=== PATIENT | female | born 1990 | race Native Hawaiian/Other Pacific Islander ===

== ENCOUNTER 2018-01-01 14:37 | Inpatient (IN) | payer OTHER ==
[2018-01-01 14:37] VITALS: BMI 32.5
[2018-01-01] MEDS ORDERED: Lidocaine 2% w Epi 1:100,000 Inj IJ ONE (15:34)
[2018-01-01] MEDS ORDERED: cefTRIAXone 2 GM in Sodium Chloride 0.9% 100 ML IVPB STA (15:39)
[2018-01-01] MEDS ORDERED: Dexamethasone 10 MG in Sodium Chloride 0.9% 50 ML IVPB STA (15:39)
[2018-01-01] MEDS ORDERED: Sodium Chloride 0.9% 1,000 ML IV STA (15:43)
--- NOTE | 2018-01-01 15:45 | ED PDOC ---
HPI: Fever Time Seen by Provider: 01/01/18 15:13 Fever Onset Was: 12/28/17 Recent Sick Contacts: No Have you had recent travel within the past 21 days to any of the following countries: [place], [place], [place] or [place]?: No Additional Comments: 27 y/o female with a PMHx of asthma presents to the ED for evaluation of a fever. Patient reports symptoms began with a stiff neck on and later that evening she developed a fever with a Tmax of 102. Patient states fever is associated with headaches, photophobia and nausea. Patient additionally reports of developing a rash on Monday starting on the legs and is now on the arm. Patient reports of taking Motrin for fever one hour prior to arrival. Patient states she went to an Urgent Care yesterday and was prescribed Cefdinir to treat the fever. Patient denies diarrhea, URI symptoms, urinary symptoms, sick contacts or recent travel. Past Medical History Reviewed: Historical Data, Nursing Documentation, Vital Signs Vital Signs: Last Vital Signs Temp 99.2 F 01/01/18 15:22 Pulse 104 H 01/01/18 15:22 Resp 19 01/01/18 15:22 BP 126/72 01/01/18 15:22 Pulse Ox 98 01/01/18 15:22 - Medical History PMH: Asthma - Surgical History Surgical History: No Surg Hx - Family History Family History: States: Diabetes - Social History Current smoker - smoking cessation education provided: No - Home Medications Home Medications: Ambulatory Orders Medication Instructions Recorded Albuterol Sulfate [Proair Hfa] 2 puff IH Q6 PRN 01/01/18 - Allergies Allergies/Adverse Reactions: Allergies Allergy/AdvReac Type Severity Reaction Status Date / Time shellfish derived Allergy RASH Verified 01/01/18 15:38 Review of Systems ROS Statement: Except As Marked, All Systems Reviewed And Found Negative (as per HPI) Constitutional: Positive for: Fever Cardiovascular: Negative for: Chest Pain Respiratory: Negative for: Cough, Hemoptysis Gastrointestinal: Positive for: Nausea. Negative for: Vomiting, Diarrhea Musculoskeletal: Positive for: Neck Pain Neurological: Positive for: Headache, Other (photophobia) Physical Exam - Reviewed Nursing Documentation Reviewed: Yes Vital Signs Reviewed: Yes - Physical Exam Appears: Positive for: Non-toxic, In Acute Distress Head Exam: Positive for: ATRAUMATIC, NORMOCEPHALIC Skin: Positive for: Warm, Dry, Rash Eye Exam: Positive for: EOMI, PERRL ENT: Negative for: Pharyngeal Erythema, Tonsillar Exudate Neck: Positive for: Supple, Pain On Movement Of Neck (pain with flexion, neg brudsinki/kernig) Cardiovascular/Chest: Positive for: Regular Rate, Rhythm, Chest Non Tender. Negative for: Murmur Respiratory: Positive for: Normal Breath Sounds. Negative for: Rales, Rhonchi, Respiratory Distress Gastrointestinal/Abdominal: Positive for: Soft. Negative for: Tenderness, Mass, Guarding Back: Positive for: Normal Inspection. Negative for: L CVA Tenderness, R CVA Tenderness Extremity: Positive for: Normal ROM. Negative for: Deformity Lymphatic: Negative for: Adenopathy Neurologic/Psych: Positive for: Alert. Negative for: Motor/Sensory Deficits - Laboratory Results Result Diagrams: 01/02/18 05:35 01/02/18 05:35 - ECG ECG: Positive for: Interpreted By [facility] ECG Rhythm: Positive for: Normal QRS, Normal ST Segment, Sinus Rhythm O2 Sat by Pulse Oximetry: 98 (RA) Pulse Ox Interpretation: Normal - Radiology X-Ray: Interpreted by [facility] X-Ray Interpretation: No Acute Disease Medical Decision Making Medical Decision Making: Time: 1543 Impression: Fever and Neck Pain Differentials include but not limited to viral syndrome, meningitis, coxsackie, flu and strep throat. Plan: -- VBG -- EKG -- CMP -- Glucose, CSF -- Magnesium -- Phosphorus -- Total Protein, CSF -- CBC with differentials -- PTT -- Prothrombin Time -- CXR Portable XR -- Herpes Simplex 1/2, PCR -- Dexamethasone 10 mg sodium chloride 50 ml IVPB -- Sodium Chloride IV 1000 mls/hr -- Rocephin 2 gm Sodium Chloride 100 ml IVPB -- Blood Culture -- CSF Culture -- Urine Culture -- IV Insertion -- Bacterial Antigen CSF -- Infectious Mononucleolis -- Influenza A B -- Rapid Strep Group A Antigen Time: 173 CXR RESULTS FINDINGS: LUNGS: Right lower lobe infiltrate suspicious for pneumonia. PLEURA: No significant pleural effusion identified, no pneumothorax apparent. CARDIOVASCULAR: Normal. OSSEOUS STRUCTURES: No significant abnormalities. VISUALIZED UPPER ABDOMEN: Normal. OTHER FINDINGS: None. IMPRESSION: Suspicious findings right lower lobe. Pneumonia to be considered. This is a portable slightly rotated study. If these findings are discordant with clinical findings/presentation repeat two-view chest/CT scan advised. Repeat CXR negative for RLL. Bloodwork unremarkable. STACI Pratt PMD for hospitalization for meningitis. Requests Dr Camila GRAMAJO who recommends rickettsial serology and measle, mumps, rubella bloodwork. CSF results c/w viral meningitis. Acyclovir ordered. DW pt and family findings and plan of care. On reeval pt continues to be comfortable. Neurologically intact. Scribe Attestation: Documented by Rosie Montes De Oca acting as a scribe for Maria Fernanda Alvarado MD. Provider Scribe Attestation: All medical record entries made by the Scribe were at my direction and personally dictated by me. I have reviewed the chart and agree that the record accurately reflects my personal performance of the history, physical exam, medical decision making, and the department course for this patient. I have also personally directed, reviewed, and agree with the discharge instructions and disposition. Disposition - Clinical Impression Clinical Impression: Meningitis Counseled Patient/Family Regarding: Studies Performed, Diagnosis - Disposition Disposition Time: 17:45 Condition: SERIOUS - Pt Status Changed To: Hospital Disposition Of: Observation - POA Present On Arrival: None Lumbar Puncture - Time Out Time Out: Side verified, Site verified, Patient ID confirmed, Sterile procedures obs. - Consent obtained Consent obtained: Written - Performed by Performed by: Attending Physician - Indications Indication(s): Suspected menigitis - Contraindications Contraindications: None - Patient Position Patient position: Left lateral decubitus - Local Anesthetic Location: L4/L5 - Fluid Appearance Fluid Appearance: Clear - Post-procedure Post-procedure: No leak/bld from LP site, Dressing applied, Patient laid flat, Neurovascular status nml
[2018-01-01 16:16] LABS: VENOUS BLOOD GAS BASE EXCESS 2.2 mmol/L (0.0-2.0); VENOUS BLOOD GAS PCO2 46 mmHg (40-60); VENOUS BLOOD GAS PO2 22 mm/Hg (30-55); VENOUS BLOOD PH 7.39 (7.32-7.43)
[2018-01-01 16:19] LABS: BASO % 0.4 % (0.0-2.0); EOS # 0.3 K/uL (0.0-0.7); EOS % 4.3 % (0.0-4.0); HEMOGLOBIN 12.1 g/dL (12.0-16.0); LYMPH # 1.3 K/uL (1.0-4.3); LYMPH % 19.4 % (20.0-40.0); MEAN CELL VOLUME 91.1 fl (81.0-99.0); MEAN CORPUSCULAR HEMOGLOBIN 31.1 pg (27.0-31.0); MEAN CORPUSCULAR HGB CONC 34.1 g/dL (33.0-37.0); MEAN PLATELET VOLUME 6.9 fl (7.2-11.7); MONO # 0.4 K/uL (0.0-0.8); MONO % 6.1 % (0.0-10.0); NEUT # 4.5 K/uL (1.8-7.0); NEUT % 69.8 % (50.0-75.0); NRBC % 0.1 % (0.0-0.0); RBC 3.88 Mil/uL (3.80-5.20); RED CELL DISTRIBUTION WIDTH 11.6 % (11.5-14.5); WHITE BLOOD COUNT 6.5 K/uL (4.8-10.8)
[2018-01-01 16:22] LABS: SQUAMOUS EPITHIAL < 1 /hpf (0-5); URINE BACTERIA RARE (<OCC); URINE BILIRUBIN NEGATIVE (NEGATIVE); URINE BLOOD MODERATE (NEGATIVE); URINE CLARITY CLEAR (Clear); URINE COLOR YELLOW (YELLOW); URINE GLUCOSE (UA) NEG (Normal); URINE LEUKOCYTE ESTERASE NEG Leu/uL (Negative); URINE PROTEIN NEGATIVE (NEGATIVE); URINE UROBILINOGEN 0.2-1.0 mg/dL (0.2-1.0)
[2018-01-01 16:24] LABS: PROTHROMBIN TIME 11.1 Seconds (9.8-13.1)
[2018-01-01 16:27] LABS: PARTIAL THROMBOPLASTIN TIME 30.2 Seconds (25.6-37.1)
[2018-01-01 16:35] LABS: ALT/SGPT 25 U/L (9-52); AST/SGOT 27 U/L (14-36); BLOOD UREA NITROGEN 7 mg/dl (7-17); GFR NON-AFRICAN AMERICAN > 60
[2018-01-01 17:12] LABS: CSF APPEARANCE CLEAR/COLORLESS (CLEAR); CSF VOLUME 1 mL (0-1); FLUID TYPE SPINAL FLUID
--- NOTE | 2018-01-01 17:35 | RAD ---
Date of service: 01/01/2018 HISTORY: Sepsis Patient fever, rash and neck pain COMPARISON: No prior. FINDINGS: LUNGS: Right lower lobe infiltrate suspicious for pneumonia. PLEURA: No significant pleural effusion identified, no pneumothorax apparent. CARDIOVASCULAR: Normal. OSSEOUS STRUCTURES: No significant abnormalities. VISUALIZED UPPER ABDOMEN: Normal. OTHER FINDINGS: None. IMPRESSION: Suspicious findings right lower lobe. Pneumonia to be considered. This is a portable slightly rotated study. If these findings are discordant with clinical findings/presentation repeat two-view chest/CT scan advised.
[2018-01-01 17:48] LABS: CSF MONO/MACROPHAGE 13 % (0-0)
[2018-01-01] MEDS ORDERED: Albuterol 0.083% Inhal Sol (2.5 mg/3 mL) UD INH PRN (21:32)
[2018-01-01 22:40] LABS: N MENINGITIS ACY/W135 NEGATIVE (NEGATIVE); N MENINGITIS B/ECOLI K1 NEGATIVE (NEGATIVE); STREP PNEUMONIAE NEGATIVE (NEGATIVE); STREPTOCOCCUS B NEGATIVE (NEGATIVE)
[2018-01-02 06:37] LABS: BASO % 0.4 % (0.0-2.0); HEMOGLOBIN 11.6 g/dL (12.0-16.0); LYMPH # 0.6 K/uL (1.0-4.3); LYMPH % 12.8 % (20.0-40.0); MEAN CELL VOLUME 90.8 fl (81.0-99.0); MEAN CORPUSCULAR HEMOGLOBIN 30.8 pg (27.0-31.0); MONO # 0.4 K/uL (0.0-0.8); MONO % 8.3 % (0.0-10.0); NEUT # 3.6 K/uL (1.8-7.0); NEUT % 78.5 % (50.0-75.0); RBC 3.76 Mil/uL (3.80-5.20); RED CELL DISTRIBUTION WIDTH 11.6 % (11.5-14.5); WHITE BLOOD COUNT 4.6 K/uL (4.8-10.8)
[2018-01-02 07:23] LABS: BLOOD UREA NITROGEN 7 mg/dl (7-17); CALCIUM 8.8 mg/dL (8.4-10.2); GFR NON-AFRICAN AMERICAN > 60
--- NOTE | 2018-01-02 08:18 | CP.PCM.HP ---
History of Present Illness - History of Present Illness History of Present Illness: 27 YR OLD FEMALE ADMITTED WITH FEVER,HEADACHES,NECK STIFFNESS AND SKIN RASH X SEVERAL DAYS.SHE VISITED AN URGICENTER AND WAS PLACED ON ANTIBIOTICS BUT SYMPTOMS PERSISTED.SHE WAS SEEN IN THE OFFICE AND REFERRED TO THE ER TO R/O MENINGITIS. HX OF ASTHMA CONTROLLED ON INHALERS NON-SMPKER/ETOH/DRUG USE Present on Admission - Present on Admission Any Indicators Present on Admission: No Past Patient History - Past Medical History & Family History Past Medical History?: Yes - Past Social History Smoking Status: Never Smoked - CARDIAC Hx Cardiac Disorders: No - PULMONARY Hx Respiratory Disorders: Yes (asthma) Hx Asthma: Yes - NEUROLOGICAL Hx Neurological Disorder: No - HEENT Hx HEENT Problems: No - RENAL Hx Chronic Kidney Disease: No - HEMATOLOGICAL/ONCOLOGICAL Hx Blood Disorders: No - INTEGUMENTARY Hx Dermatological Problems: No - MUSCULOSKELETAL/RHEUMATOLOGICAL Hx Musculoskeletal Disorders: No Hx Falls: No - GASTROINTESTINAL Hx Gastrointestinal Disorders: No - GENITOURINARY/GYNECOLOGICAL Hx Genitourinary Disorders: No - PSYCHIATRIC Hx Psychophysiologic Disorder: No Hx Substance Use: No - SURGICAL HISTORY Hx Surgeries: No - ANESTHESIA Hx Anesthesia: No Meds Allergies/Adverse Reactions: Allergies Allergy/AdvReac Type Severity Reaction Status Date / Time shellfish derived Allergy RASH Verified 01/01/18 15:38 Physical Exam - Constitutional Appears: No Acute Distress - Head Exam Head Exam: ATRAUMATIC, NORMAL INSPECTION, NORMOCEPHALIC - Eye Exam Eye Exam: EOMI, Normal appearance, PERRL Pupil Exam: NORMAL ACCOMODATION, PERRL - ENT Exam ENT Exam: Mucous Membranes Moist, Normal Exam Additional comments: NECK STIFFNESS - Neck Exam Neck exam: Positive for: Normal Inspection - Respiratory Exam Respiratory Exam: Clear to Auscultation Bilateral, NORMAL BREATHING PATTERN - Cardiovascular Exam Cardiovascular Exam: REGULAR RHYTHM - GI/Abdominal Exam GI & Abdominal Exam: Normal Bowel Sounds, Soft. absent: Tenderness - Rectal Exam Rectal Exam: NORMAL INSPECTION - Extremities Exam Extremities exam: Positive for: normal inspection - Back Exam Back exam: NORMAL INSPECTION - Neurological Exam Neurological exam: Alert, CN II-XII Intact, Normal Gait, Oriented x3, Reflexes Normal - Psychiatric Exam Psychiatric exam: Normal Affect, Normal Mood - Skin Skin Exam: Dry, Intact, Normal Color, Rash, Warm Additional comments: ERYTEMATOUS SKIN RASH Results - Vital Signs Recent Vital Signs: Last Vital Signs Temp 99.2 F 01/02/18 08:10 Pulse 81 01/02/18 08:10 Resp 18 01/02/18 08:10 BP 114/72 01/02/18 08:10 Pulse Ox 95 01/02/18 08:10 - Labs Result Diagrams: 01/02/18 05:35 01/02/18 05:35 Labs: Laboratory Results - last 24 hr 01/01/18 01/01/18 01/01/18 15:49 15:49 16:06 WBC RBC Hgb Hct MCV MCH MCHC RDW Plt Count MPV Neut % (Auto) Lymph % (Auto) [place] % (Auto) Eos % (Auto) Baso % (Auto) Neut # (Auto) Lymph # (Auto) [place] # (Auto) Eos # (Auto) Baso # (Auto) PT INR APTT pO2 22 L VBG pH 7.39 VBG pCO2 46 VBG HCO3 25.0 VBG Total CO2 29.2 H VBG O2 Sat (Calc) 37.8 L VBG Base Excess 2.2 H VBG Potassium 3.4 L Sodium 137.0 Chloride 97.0 L Glucose 91 Lactate 0.8 FiO2 21.0 Potassium Carbon Dioxide Anion Gap BUN Creatinine Est GFR ( Amer) Est GFR (Non-Af Amer) POC Glucose (mg/dL) Random Glucose Calcium Phosphorus Magnesium Total Bilirubin AST ALT Alkaline Phosphatase Total Protein Albumin Globulin Albumin/Globulin Ratio Venous Blood Potassium 3.4 L Urine Color Urine Clarity Urine pH Ur Specific [place] Urine Protein Urine Glucose (UA) Urine Ketones Urine Blood Urine Nitrate Urine Bilirubin Urine Urobilinogen Ur Leukocyte Esterase Urine RBC (Auto) Urine Microscopic WBC Ur Squamous Epith Cells Urine Bacteria Fluid Type CSF Volume CSF Appearance CSF WBC CSF RBC CSF Total Cell Counted CSF Neutrophils CSF Lymphocytes CSF Monos/Macrophages CSF Comment CSF Glucose 53 CSF Total Protein 47.0 HSV Source Description Infectious [place] Assay Influenza Typ A,B (EIA) H.influenzae Type B Ag N.meningitidis ACY/W135 N.meningi B/E.coli K1 Ag Grp A Beta Strep Ag Group B Strep Antigen S. pneumoniae Antigen 01/01/18 01/01/18 01/01/18 16:12 16:12 16:12 WBC 6.5 RBC 3.88 Hgb 12.1 Hct 35.4 MCV 91.1 MCH 31.1 H MCHC 34.1 RDW 11.6 Plt Count 280 MPV 6.9 L Neut % (Auto) 69.8 Lymph % (Auto) 19.4 L [place] % (Auto) 6.1 Eos % (Auto) 4.3 H Baso % (Auto) 0.4 Neut # (Auto) 4.5 Lymph # (Auto) 1.3 [place] # (Auto) 0.4 Eos # (Auto) 0.3 Baso # (Auto) 0.0 PT 11.1 INR 1.0 APTT 30.2 pO2 VBG pH VBG pCO2 VBG HCO3 VBG Total CO2 VBG O2 Sat (Calc) VBG Base Excess VBG Potassium Sodium 135 Chloride 101 Glucose Lactate FiO2 Potassium 3.5 L Carbon Dioxide 26 Anion Gap 12 BUN 7 Creatinine 0.6 L Est GFR ( Amer) > 60 Est GFR (Non-Af Amer) > 60 POC Glucose (mg/dL) Random Glucose 95 Calcium 9.0 Phosphorus 4.1 Magnesium 2.1 Total Bilirubin 0.8 AST 27 ALT 25 Alkaline Phosphatase 46 Total Protein 7.9 Albumin 4.0 Globulin 3.9 Albumin/Globulin Ratio 1.0 Venous Blood Potassium Urine Color Urine Clarity Urine pH Ur Specific [place] Urine Protein Urine Glucose (UA) Urine Ketones Urine Blood Urine Nitrate Urine Bilirubin Urine Urobilinogen Ur Leukocyte Esterase Urine RBC (Auto) Urine Microscopic WBC Ur Squamous Epith Cells Urine Bacteria Fluid Type CSF Volume CSF Appearance CSF WBC CSF RBC CSF Total Cell Counted CSF Neutrophils CSF Lymphocytes CSF Monos/Macrophages CSF Comment CSF Glucose CSF Total Protein HSV Source Description Infectious [place] Assay Influenza Typ A,B (EIA) H.influenzae Type B Ag N.meningitidis ACY/W135 N.meningi B/E.coli K1 Ag Grp A Beta Strep Ag Group B Strep Antigen S. pneumoniae Antigen 01/01/18 01/01/18 01/01/18 16:12 16:12 16:12 WBC RBC Hgb Hct MCV MCH MCHC RDW Plt Count MPV Neut % (Auto) Lymph % (Auto) [place] % (Auto) Eos % (Auto) Baso % (Auto) Neut # (Auto) Lymph # (Auto) [place] # (Auto) Eos # (Auto) Baso # (Auto) PT INR APTT pO2 VBG pH VBG pCO2 VBG HCO3 VBG Total CO2 VBG O2 Sat (Calc) VBG Base Excess VBG Potassium Sodium Chloride Glucose Lactate FiO2 Potassium Carbon Dioxide Anion Gap BUN Creatinine Est GFR ( Amer) Est GFR (Non-Af Amer) POC Glucose (mg/dL) Random Glucose Calcium Phosphorus Magnesium Total Bilirubin AST ALT Alkaline Phosphatase Total Protein Albumin Globulin Albumin/Globulin Ratio Venous Blood Potassium Urine Color Yellow Urine Clarity Clear Urine pH 6.0 Ur Specific [place] 1.008 Urine Protein Negative Urine Glucose (UA) Neg Urine Ketones Negative Urine Blood Moderate Urine Nitrate Negative Urine Bilirubin Negative Urine Urobilinogen 0.2-1.0 Ur Leukocyte Esterase Neg Urine RBC (Auto) 8 H Urine Microscopic WBC 1 Ur Squamous Epith Cells < 1 Urine Bacteria Rare Fluid Type CSF Volume CSF Appearance CSF WBC CSF RBC CSF Total Cell Counted CSF Neutrophils CSF Lymphocytes CSF Monos/Macrophages CSF Comment CSF Glucose CSF Total Protein HSV Source Description Infectious [place] Assay Negative Influenza Typ A,B (EIA) Negative for flu a/b H.influenzae Type B Ag N.meningitidis ACY/W135 N.meningi B/E.coli K1 Ag Grp A Beta Strep Ag Group B Strep Antigen S. pneumoniae Antigen 01/01/18 01/01/18 01/01/18 16:12 16:48 17:00 WBC RBC Hgb Hct MCV MCH MCHC RDW Plt Count MPV Neut % (Auto) Lymph % (Auto) [place] % (Auto) Eos % (Auto) Baso % (Auto) Neut # (Auto) Lymph # (Auto) [place] # (Auto) Eos # (Auto) Baso # (Auto) PT INR APTT pO2 VBG pH VBG pCO2 VBG HCO3 VBG Total CO2 VBG O2 Sat (Calc) VBG Base Excess VBG Potassium Sodium Chloride Glucose Lactate FiO2 Potassium Carbon Dioxide Anion Gap BUN Creatinine Est GFR ( Amer) Est GFR (Non-Af Amer) POC Glucose (mg/dL) 114 H Random Glucose Calcium Phosphorus Magnesium Total Bilirubin AST ALT Alkaline Phosphatase Total Protein Albumin Globulin Albumin/Globulin Ratio Venous Blood Potassium Urine Color Urine Clarity Urine pH Ur Specific [place] Urine Protein Urine Glucose (UA) Urine Ketones Urine Blood Urine Nitrate Urine Bilirubin Urine Urobilinogen Ur Leukocyte Esterase Urine RBC (Auto) Urine Microscopic WBC Ur Squamous Epith Cells Urine Bacteria Fluid Type CSF Volume CSF Appearance CSF WBC CSF RBC CSF Total Cell Counted CSF Neutrophils CSF Lymphocytes CSF Monos/Macrophages CSF Comment CSF Glucose CSF Total Protein HSV Source Description Fluid Infectious [place] Assay Influenza Typ A,B (EIA) H.influenzae Type B Ag N.meningitidis ACY/W135 N.meningi B/E.coli K1 Ag Grp A Beta Strep Ag Negative Group B Strep Antigen S. pneumoniae Antigen 01/01/18 01/01/18 01/02/18 17:00 17:03 05:35 WBC 4.6 L RBC 3.76 L Hgb 11.6 L Hct 34.1 MCV 90.8 MCH 30.8 MCHC 34.0 RDW 11.6 Plt Count 286 MPV 7.0 L Neut % (Auto) 78.5 H Lymph % (Auto) 12.8 L [place] % (Auto) 8.3 Eos % (Auto) 0.0 Baso % (Auto) 0.4 Neut # (Auto) 3.6 Lymph # (Auto) 0.6 L [place] # (Auto) 0.4 Eos # (Auto) 0.0 Baso # (Auto) 0.0 PT INR APTT pO2 VBG pH VBG pCO2 VBG HCO3 VBG Total CO2 VBG O2 Sat (Calc) VBG Base Excess VBG Potassium Sodium Chloride Glucose Lactate FiO2 Potassium Carbon Dioxide Anion Gap BUN Creatinine Est GFR ( Amer) Est GFR (Non-Af Amer) POC Glucose (mg/dL) Random Glucose Calcium Phosphorus Magnesium Total Bilirubin AST ALT Alkaline Phosphatase Total Protein Albumin Globulin Albumin/Globulin Ratio Venous Blood Potassium Urine Color Urine Clarity Urine pH Ur Specific [place] Urine Protein Urine Glucose (UA) Urine Ketones Urine Blood Urine Nitrate Urine Bilirubin Urine Urobilinogen Ur Leukocyte Esterase Urine RBC (Auto) Urine Microscopic WBC Ur Squamous Epith Cells Urine Bacteria Fluid Type Spinal fluid CSF Volume 1 CSF Appearance Clear/colorless CSF WBC 67.0 H CSF RBC 1.0 H CSF Total Cell Counted 100 H CSF Neutrophils 13 H CSF Lymphocytes 74.0 H CSF Monos/Macrophages 13 H CSF Comment Colorless CSF Glucose CSF Total Protein HSV Source Description Infectious [place] Assay Influenza Typ A,B (EIA) H.influenzae Type B Ag Negative N.meningitidis ACY/W135 Negative N.meningi B/E.coli K1 Ag Negative Grp A Beta Strep Ag Group B Strep Antigen Negative S. pneumoniae Antigen Negative 01/02/18 05:35 WBC RBC Hgb Hct MCV MCH MCHC RDW Plt Count MPV Neut % (Auto) Lymph % (Auto) [place] % (Auto) Eos % (Auto) Baso % (Auto) Neut # (Auto) Lymph # (Auto) [place] # (Auto) Eos # (Auto) Baso # (Auto) PT INR APTT pO2 VBG pH VBG pCO2 VBG HCO3 VBG Total CO2 VBG O2 Sat (Calc) VBG Base Excess VBG Potassium Sodium 139 Chloride 106 Glucose Lactate FiO2 Potassium 4.2 Carbon Dioxide 25 Anion Gap 12 BUN 7 Creatinine 0.5 L Est GFR ( Amer) > 60 Est GFR (Non-Af Amer) > 60 POC Glucose (mg/dL) Random Glucose 116 H Calcium 8.8 Phosphorus Magnesium Total Bilirubin AST ALT Alkaline Phosphatase Total Protein Albumin Globulin Albumin/Globulin Ratio Venous Blood Potassium Urine Color Urine Clarity Urine pH Ur Specific [place] Urine Protein Urine Glucose (UA) Urine Ketones Urine Blood Urine Nitrate Urine Bilirubin Urine Urobilinogen Ur Leukocyte Esterase Urine RBC (Auto) Urine Microscopic WBC Ur Squamous Epith Cells Urine Bacteria Fluid Type CSF Volume CSF Appearance CSF WBC CSF RBC CSF Total Cell Counted CSF Neutrophils CSF Lymphocytes CSF Monos/Macrophages CSF Comment CSF Glucose CSF Total Protein HSV Source Description Infectious [place] Assay Influenza Typ A,B (EIA) H.influenzae Type B Ag N.meningitidis ACY/W135 N.meningi B/E.coli K1 Ag Grp A Beta Strep Ag Group B Strep Antigen S. pneumoniae Antigen Assessment & Plan - Assessment and Plan (Free Text) Assessment: R/O MENINGITIS ?VIRAL SYNDROME HX OF OF MILD INTERMITTENT ASTHMA-STABLE Plan: ID EVAL SEE ORDERS - Date & Time Date: 01/02/18 Time: 08:20
[2018-01-02] MEDS: Hydrocortisone 1% Oint TOP SCH (09:00)
--- NOTE | 2018-01-02 10:59 | CP.PCM.CON ---
History of Present Illness - History of Present Illness History of Present Illness: 27 y/o female with a PMHx of asthma presents to the ED for evaluation of a fever headache and rash Patient reports symptoms began with a stiff neck on and later that evening she developed a fever with a Tmax of 102. Patient states fever is associated with headaches, photophobia and nausea. Patient developed a rash on Monday starting on the legs and is now on the arm. Rash spares palms and soleas and is pruritic No joint involvement Patient states she went to an Urgent Care yesterday and was prescribed Cefdinir to treat the fever. recently traveled to [place] stayed at [facility] Has many nieces and n ephews No ill contacts In ER LP done shows Lymphocytic predominance Started on antibiotics and Ac yclovir Review of Systems - Constitutional Constitutional: As Per HPI, Anorexia, Chills, Fatigue, Fever, Headache, Malaise - EENT Eyes: Photophobia. absent: As Per HPI, Blind Spots, Blurred Vision, Change in Vision, Decreased Night Vision, Diplopia, Discharge, Dry Eye, Exophthalmos, Floaters, Irritation, Itchy Eyes, Loss of Peripheral Vision, Pain, Requires Corrective Lenses, Sees Flashes, Spots in Vision, Tunnel Vision, Other Visual Disturbances, Loss of Vision, Other Ears: absent: As Per HPI, Decreased Hearing, Ear Discharge, Ear Pain, Tinnitus, Abnormal Hearing, Disequilibrium, Dizziness, Other Nose/Mouth/Throat: absent: As Per HPI, Epistaxis, Nasal Congestion, Nasal Discharge, Nasal Obstruction, Nasal Trauma, Nose Pain, Post Nasal Drip, Sinus Pain, Sinus Pressure, Bleeding Gums, Change in Voice, Dental Pain, Dry Mouth, Dysphagia, Halitosis, Hoarsness, Lip Swelling, Mouth Lesions, Mouth Pain, Odynophagia, Sore Throat, Throat Swelling, Tongue Swelling, Facial Pain, Neck Pain, Neck Mass, Other - Breasts Breasts: absent: As Per HPI, Change in Shape, Mass, Pain, Nipple Discharge, Nipple Inversion, Skin Changes, Swelling, Other - Cardiovascular Cardiovascular: absent: As Per HPI, Acrocyanosis, Chest Pain, Chest Pain at Rest, Chest Pain with Activity, Claudication, Diaphoresis, Dyspnea, Dyspnea on Exertion, Edema, Irregular Heart Rhythm, Pain Radiating to Arm/Neck/Jaw, Leg Edema, Leg Ulcers, Lightheadedness, Orthopnea, Palpitations, Paroxysmal Nocturnal Dyspnea, Pedal Edema, Radiating Pain, Rapid Heart Rate, Slow Heart Rate, Syncope, Other - Respiratory Respiratory: absent: As Per HPI, Cough, Dyspnea, Hemoptysis, Dyspnea on Exertion, Wheezing, Snoring, Stridor, Pain on Inspiration, Chest Congestion, Excessive Mucous Production, Change in Mucous Color, Pain with Coughing, Other - Gastrointestinal Gastrointestinal: absent: As Per HPI, Abdominal Pain, Belching, Bloating, Change in Bowel Habits, Change in Stool Character, Coffee Ground Emesis, Constipation, Cramping, Diarrhea, Dyspepsia, Dysphagia, Early Satiety, Excessive Flatus, Fecal Incontinence, Heartburn, Hematemesis, Hematochezia, Loose Stools, Melena, Nausea, Odynophagia, Temesmus, Vomiting, Other - Genitourinary Genitourinary: absent: As Per HPI, Change in Urinary Stream, Difficulty Urinating, Dysuria, Flank Pain, Hematuria, Pyuria, Nocturia, Urinary Inco ntinence, Urinary Frequency, Urinary Hesitance, Urinary Urgency, Voiding Freq/Small Amts, Freq UTI, Hx Renal/Bladder Calculi, Hx /Renal Surgery, Bladder Distension, Other - Reproductive: Female Reproductive:Female: absent: As Per HPI, Amenorrhea, Amenorrhea/ Control, Currently Menstual, Cycle <21 Days, Cycle >35 Days, Cycle Variable, Menses 1-7 Days, Menses >/= 8 Days, Menses Variable, Cycle > 4 Weeks Between, No Menses for 6 Months, Heavy Menses, Light Menses, Normal Menses, Spotting Between Cycles, S/P Hysterectomy, Menopausal, Post Menopausal, Premenarche, Abnormal Vaginal Bleeding, Dysmenorrhea, Dyspareunia, Genital Lesions, Genital Pruritis, Pelvic Pain, Prolapse Symptoms, Sexual Dysfunction, Vaginal Discharge, Vaginal Dryness, Vaginal Odor, Vaginal Pruritis, Other - Menstruation Menstruation: absent: As Per HPI, Amenorrhea, Amenorrhea/ Control, Currently Menstual, Cycle <21 Days, Cycle >35 Days, Cycle Variable, Menses 1-7 Days, Menses >/= 8 Days, Menses Variable, Cycle > 4 Weeks Between, No Menses for 6 Months, Heavy Menses, Light Menses, Normal Menses, Spotting Between Cycles, S/P Hysterectomy, Menopausal, Post Menopausal, Premenarche, Abnormal Vaginal Bleeding, Dysmenorrhea, Other - Musculoskeletal Musculoskeletal: absent: As Per HPI, Abnormal Gait, Arthralgias, Atrophy, Back Pain, Deformity, Joint Swelling, Limited Range of Motion, Loss of Height, Muscle Cramps, Muscle Weakness, Myalgias, Neck Pain, Numbness, Radiating Pain into Limb, Stiffness, Tingling, Other - Integumentary Integumentary: absent: As Per HPI, Acne, Alopecia, Bleeding Lesions, Change in Hair, Change in Nails, Change in Pigmentation, Changing Lesions, Dry Skin, Erythema, Furuncle, Hirsutism, Lesions, New Lesions, Non-Healing Lesions, Photosensitivity, Pruritus, Rash, Skin Pain, Skin Ulcer, Sores, Striae, Swelling, Unusual Bruising, Wounds, Jaundice, Other - Neurological Neurological: As Per HPI - Psychiatric Psychiatric: absent: As Per HPI, Abnormal Sleep Pattern, Anhedonia, Anxiety, Auditory Hallucinations, Behavioral Changes, Change in Appetite, Change in Libido, Confusion, Depression, Difficulty Concentrating, Hallucinations, Homicidal Ideation, Hopelessness, Irritability, Memory Loss, Mood Swings, Panic Attacks, Paranoia, Suicidal Ideation, Visual Hallucinations, Tactile Hallucinations, Other - Endocrine Endocrine: absent: As Per HPI, Change in Body Appearance, Change in Libido, Cold Intolorance, Deepening of Voice, Excessive Sweating, Fatigue, Flushing, Heat Intolorance, Increase in Ring/Shoe/Hat Size, Palpitations, Polydipsia, Polyphagia, Polyuria, Other - Hematologic/Lymphatic Hematologic: absent: As Per HPI, Easy Bleeding, Easy Bruising, Lymphadenopathy, Other Past Patient History - Past Medical History & Family History Past Medical History?: Yes - Past Social History Smoking Status: Never Smoked - CARDIAC Hx Cardiac Disorders: No - PULMONARY Hx Respiratory Disorders: Yes (asthma) Hx Asthma: Yes - NEUROLOGICAL Hx Neurological Disorder: No - HEENT Hx HEENT Problems: No - RENAL Hx Chronic Kidney Disease: No - HEMATOLOGICAL/ONCOLOGICAL Hx Blood Disorders: No - INTEGUMENTARY Hx Dermatological Problems: No - MUSCULOSKELETAL/RHEUMATOLOGICAL Hx Musculoskeletal Disorders: No Hx Falls: No - GASTROINTESTINAL Hx Gastrointestinal Disorders: No - GENITOURINARY/GYNECOLOGICAL Hx Genitourinary Disorders: No - PSYCHIATRIC Hx Psychophysiologic Disorder: No Hx Substance Use: No - SURGICAL HISTORY Hx Surgeries: No - ANESTHESIA Hx Anesthesia: No Meds Allergies/Adverse Reactions: Allergies Allergy/AdvReac Type Severity Reaction Status Date / Time shellfish derived Allergy RASH Verified 01/01/18 15:38 - Medications Medications: Current Medications Acetaminophen (Tylenol 325mg Tab) 650 mg PO Q4 PRN PRN Reason: Headache Last Admin: 01/02/18 10:38 Dose: 650 mg Acetaminophen (Tylenol 325mg Tab) 650 mg PO Q4 PRN PRN Reason: Other Albuterol Sulfate (Albuterol 0.083% Inhal Blanca (2.5 Mg/3 Ml) Ud) 2.5 mg INH RQ6 PRN PRN Reason: Shortness of Breath Hydrocortisone (Cortizone 1% Oint) 1 applic TOP BID CARLOS Acyclovir 800 mg/ Sodium (Chloride) 250 mls @ 250 mls/hr IV Q8 CARLOS; Protocol Last Admin: 01/02/18 01:04 Dose: 250 mls/hr Ceftriaxone Sodium 2 mg/ (Sodium Chloride) 100 mls @ 100 mls/hr IVPB DAILY CARLOS; Protocol Doxycycline Hyclate 100 mg/ (Sodium Chloride) 100 mls @ 100 mls/hr IVPB Q12 CARLOS; Protocol Last Admin: 01/02/18 09:01 Dose: 100 mls/hr Physical Exam - Constitutional Appears: No Acute Distress - Head Exam Head Exam: ATRAUMATIC, NORMOCEPHALIC - Eye Exam Eye Exam: PERRL. absent: Scleral icterus Pupil Exam: NORMAL ACCOMODATION - ENT Exam ENT Exam: Mucous Membranes Dry, Mucous Membranes Moist, Normal External Ear Exam, Normal Oropharynx, TM's Normal Bilaterally - Neck Exam Neck exam: Negative for: Lymphadenopathy - Respiratory Exam Respiratory Exam: Decreased Breath Sounds - Cardiovascular Exam Cardiovascular Exam: REGULAR RHYTHM, +S1, +S2 - GI/Abdominal Exam GI & Abdominal Exam: Diminished Bowel Sounds, Soft. absent: Tenderness - Rectal Exam Rectal Exam: Deferred - Exam Exam: NORMAL INSPECTION - Extremities Exam Extremities exam: Negative for: pedal edema - Back Exam Back exam: absent: CVA tenderness (L), CVA tenderness (R), paraspinal tenderness - Neurological Exam Neurological exam: Alert, CN II-XII Intact, Oriented x3, Reflexes Normal - Psychiatric Exam Psychiatric exam: Normal Mood - Skin Skin Exam: Dry, Intact, Rash Results - Vital Signs Recent Vital Signs: Last Vital Signs Temp 99.2 F 01/02/18 08:10 Pulse 81 01/02/18 08:10 Resp 18 01/02/18 08:10 BP 114/72 01/02/18 08:10 Pulse Ox 95 01/02/18 08:10 - Labs Result Diagrams: 01/02/18 05:35 01/02/18 05:35 Labs: Laboratory Results - last 24 hr 01/01/18 01/01/18 01/01/18 15:49 15:49 16:06 WBC RBC Hgb Hct MCV MCH MCHC RDW Plt Count MPV Neut % (Auto) Lymph % (Auto) Vernon % (Auto) Eos % (Auto) Baso % (Auto) Neut # (Auto) Lymph # (Auto) Vernon # (Auto) Eos # (Auto) Baso # (Auto) ESR PT INR APTT pO2 22 L VBG pH 7.39 VBG pCO2 46 VBG HCO3 25.0 VBG Total CO2 29.2 H VBG O2 Sat (Calc) 37.8 L VBG Base Excess 2.2 H VBG Potassium 3.4 L Sodium 137.0 Chloride 97.0 L Glucose 91 Lactate 0.8 FiO2 21.0 Potassium Carbon Dioxide Anion Gap BUN Creatinine Est GFR ( Amer) Est GFR (Non-Af Amer) POC Glucose (mg/dL) Random Glucose Calcium Phosphorus Magnesium Total Bilirubin AST ALT Alkaline Phosphatase Total Protein Albumin Globulin Albumin/Globulin Ratio Venous Blood Potassium 3.4 L Urine Color Urine Clarity Urine pH Ur Specific [place] Urine Protein Urine Glucose (UA) Urine Ketones Urine Blood Urine Nitrate Urine Bilirubin Urine Urobilinogen Ur Leukocyte Esterase Urine RBC (Auto) Urine Microscopic WBC Ur Squamous Epith Cells Urine Bacteria Fluid Type CSF Volume CSF Appearance CSF WBC CSF RBC CSF Total Cell Counted CSF Neutrophils CSF Lymphocytes CSF Monos/Macrophages CSF Comment CSF Glucose 53 CSF Total Protein 47.0 HSV Source Description Infectious Vernon Assay Influenza Typ A,B (EIA) H.influenzae Type B Ag N.meningitidis ACY/W135 N.meningi B/E.coli K1 Ag Grp A Beta Strep Ag Group B Strep Antigen S. pneumoniae Antigen 01/01/18 01/01/18 01/01/18 16:12 16:12 16:12 WBC 6.5 RBC 3.88 Hgb 12.1 Hct 35.4 MCV 91.1 MCH 31.1 H MCHC 34.1 RDW 11.6 Plt Count 280 MPV 6.9 L Neut % (Auto) 69.8 Lymph % (Auto) 19.4 L Vernon % (Auto) 6.1 Eos % (Auto) 4.3 H Baso % (Auto) 0.4 Neut # (Auto) 4.5 Lymph # (Auto) 1.3 Vernon # (Auto) 0.4 Eos # (Auto) 0.3 Baso # (Auto) 0.0 ESR PT 11.1 INR 1.0 APTT 30.2 pO2 VBG pH VBG pCO2 VBG HCO3 VBG Total CO2 VBG O2 Sat (Calc) VBG Base Excess VBG Potassium Sodium 135 Chloride 101 Glucose Lactate FiO2 Potassium 3.5 L Carbon Dioxide 26 Anion Gap 12 BUN 7 Creatinine 0.6 L Est GFR ( Amer) > 60 Est GFR (Non-Af Amer) > 60 POC Glucose (mg/dL) Random Glucose 95 Calcium 9.0 Phosphorus 4.1 Magnesium 2.1 Total Bilirubin 0.8 AST 27 ALT 25 Alkaline Phosphatase 46 Total Protein 7.9 Albumin 4.0 Globulin 3.9 Albumin/Globulin Ratio 1.0 Venous Blood Potassium Urine Color Urine Clarity Urine pH Ur Specific [place] Urine Protein Urine Glucose (UA) Urine Ketones Urine Blood Urine Nitrate Urine Bilirubin Urine Urobilinogen Ur Leukocyte Esterase Urine RBC (Auto) Urine Microscopic WBC Ur Squamous Epith Cells Urine Bacteria Fluid Type CSF Volume CSF Appearance CSF WBC CSF RBC CSF Total Cell Counted CSF Neutrophils CSF Lymphocytes CSF Monos/Macrophages CSF Comment CSF Glucose CSF Total Protein HSV Source Description Infectious Vernon Assay Influenza Typ A,B (EIA) H.influenzae Type B Ag N.meningitidis ACY/W135 N.meningi B/E.coli K1 Ag Grp A Beta Strep Ag Group B Strep Antigen S. pneumoniae Antigen 01/01/18 01/01/18 01/01/18 16:12 16:12 16:12 WBC RBC Hgb Hct MCV MCH MCHC RDW Plt Count MPV Neut % (Auto) Lymph % (Auto) Vernon % (Auto) Eos % (Auto) Baso % (Auto) Neut # (Auto) Lymph # (Auto) Vernon # (Auto) Eos # (Auto) Baso # (Auto) ESR PT INR APTT pO2 VBG pH VBG pCO2 VBG HCO3 VBG Total CO2 VBG O2 Sat (Calc) VBG Base Excess VBG Potassium Sodium Chloride Glucose Lactate FiO2 Potassium Carbon Dioxide Anion Gap BUN Creatinine Est GFR ( Amer) Est GFR (Non-Af Amer) POC Glucose (mg/dL) Random Glucose Calcium Phosphorus Magnesium Total Bilirubin AST ALT Alkaline Phosphatase Total Protein Albumin Globulin Albumin/Globulin Ratio Venous Blood Potassium Urine Color Yellow Urine Clarity Clear Urine pH 6.0 Ur Specific [place] 1.008 Urine Protein Negative Urine Glucose (UA) Neg Urine Ketones Negative Urine Blood Moderate Urine Nitrate Negative Urine Bilirubin Negative Urine Urobilinogen 0.2-1.0 Ur Leukocyte Esterase Neg Urine RBC (Auto) 8 H Urine Microscopic WBC 1 Ur Squamous Epith Cells < 1 Urine Bacteria Rare Fluid Type CSF Volume CSF Appearance CSF WBC CSF RBC CSF Total Cell Counted CSF Neutrophils CSF Lymphocytes CSF Monos/Macrophages CSF Comment CSF Glucose CSF Total Protein HSV Source Description Infectious Vernon Assay Negative Influenza Typ A,B (EIA) Negative for flu a/b H.influenzae Type B Ag N.meningitidis ACY/W135 N.meningi B/E.coli K1 Ag Grp A Beta Strep Ag Group B Strep Antigen S. pneumoniae Antigen 01/01/18 01/01/18 01/01/18 16:12 16:48 17:00 WBC RBC Hgb Hct MCV MCH MCHC RDW Plt Count MPV Neut % (Auto) Lymph % (Auto) Vernon % (Auto) Eos % (Auto) Baso % (Auto) Neut # (Auto) Lymph # (Auto) Vernon # (Auto) Eos # (Auto) Baso # (Auto) ESR PT INR APTT pO2 VBG pH VBG pCO2 VBG HCO3 VBG Total CO2 VBG O2 Sat (Calc) VBG Base Excess VBG Potassium Sodium Chloride Glucose Lactate FiO2 Potassium Carbon Dioxide Anion Gap BUN Creatinine Est GFR ( Amer) Est GFR (Non-Af Amer) POC Glucose (mg/dL) 114 H Random Glucose Calcium Phosphorus Magnesium Total Bilirubin AST ALT Alkaline Phosphatase Total Protein Albumin Globulin Albumin/Globulin Ratio Venous Blood Potassium Urine Color Urine Clarity Urine pH Ur Specific [place] Urine Protein Urine Glucose (UA) Urine Ketones Urine Blood Urine Nitrate Urine Bilirubin Urine Urobilinogen Ur Leukocyte Esterase Urine RBC (Auto) Urine Microscopic WBC Ur Squamous Epith Cells Urine Bacteria Fluid Type CSF Volume CSF Appearance CSF WBC CSF RBC CSF Total Cell Counted CSF Neutrophils CSF Lymphocytes CSF Monos/Macrophages CSF Comment CSF Glucose CSF Total Protein HSV Source Description Fluid Infectious Vernon Assay Influenza Typ A,B (EIA) H.influenzae Type B Ag N.meningitidis ACY/W135 N.meningi B/E.coli K1 Ag Grp A Beta Strep Ag Negative Group B Strep Antigen S. pneumoniae Antigen 01/01/18 01/01/18 01/02/18 17:00 17:03 05:35 WBC 4.6 L RBC 3.76 L Hgb 11.6 L Hct 34.1 MCV 90.8 MCH 30.8 MCHC 34.0 RDW 11.6 Plt Count 286 MPV 7.0 L Neut % (Auto) 78.5 H Lymph % (Auto) 12.8 L Vernon % (Auto) 8.3 Eos % (Auto) 0.0 Baso % (Auto) 0.4 Neut # (Auto) 3.6 Lymph # (Auto) 0.6 L Vernon # (Auto) 0.4 Eos # (Auto) 0.0 Baso # (Auto) 0.0 ESR 59 H PT INR APTT pO2 VBG pH VBG pCO2 VBG HCO3 VBG Total CO2 VBG O2 Sat (Calc) VBG Base Excess VBG Potassium Sodium Chloride Glucose Lactate FiO2 Potassium Carbon Dioxide Anion Gap BUN Creatinine Est GFR ( Amer) Est GFR (Non-Af Amer) POC Glucose (mg/dL) Random Glucose Calcium Phosphorus Magnesium Total Bilirubin AST ALT Alkaline Phosphatase Total Protein Albumin Globulin Albumin/Globulin Ratio Venous Blood Potassium Urine Color Urine Clarity Urine pH Ur Specific [place] Urine Protein Urine Glucose (UA) Urine Ketones Urine Blood Urine Nitrate Urine Bilirubin Urine Urobilinogen Ur Leukocyte Esterase Urine RBC (Auto) Urine Microscopic WBC Ur Squamous Epith Cells Urine Bacteria Fluid Type Spinal fluid CSF Volume 1 CSF Appearance Clear/colorless CSF WBC 67.0 H CSF RBC 1.0 H CSF Total Cell Counted 100 H CSF Neutrophils 13 H CSF Lymphocytes 74.0 H CSF Monos/Macrophages 13 H CSF Comment Colorless CSF Glucose CSF Total Protein HSV Source Description Infectious Vernon Assay Influenza Typ A,B (EIA) H.influenzae Type B Ag Negative N.meningitidis ACY/W135 Negative N.meningi B/E.coli K1 Ag Negative Grp A Beta Strep Ag Group B Strep Antigen Negative S. pneumoniae Antigen Negative 01/02/18 05:35 WBC RBC Hgb Hct MCV MCH MCHC RDW Plt Count MPV Neut % (Auto) Lymph % (Auto) Vernon % (Auto) Eos % (Auto) Baso % (Auto) Neut # (Auto) Lymph # (Auto) Vernon # (Auto) Eos # (Auto) Baso # (Auto) ESR PT INR APTT pO2 VBG pH VBG pCO2 VBG HCO3 VBG Total CO2 VBG O2 Sat (Calc) VBG Base Excess VBG Potassium Sodium 139 Chloride 106 Glucose Lactate FiO2 Potassium 4.2 Carbon Dioxide 25 Anion Gap 12 BUN 7 Creatinine 0.5 L Est GFR ( Amer) > 60 Est GFR (Non-Af Amer) > 60 POC Glucose (mg/dL) Random Glucose 116 H Calcium 8.8 Phosphorus Magnesium Total Bilirubin AST ALT Alkaline Phosphatase Total Protein Albumin Globulin Albumin/Globulin Ratio Venous Blood Potassium Urine Color Urine Clarity Urine pH Ur Specific [place] Urine Protein Urine Glucose (UA) Urine Ketones Urine Blood Urine Nitrate Urine Bilirubin Urine Urobilinogen Ur Leukocyte Esterase Urine RBC (Auto) Urine Microscopic WBC Ur Squamous Epith Cells Urine Bacteria Fluid Type CSF Volume CSF Appearance CSF WBC CSF RBC CSF Total Cell Counted CSF Neutrophils CSF Lymphocytes CSF Monos/Macrophages CSF Comment CSF Glucose CSF Total Protein HSV Source Description Infectious Vernon Assay Influenza Typ A,B (EIA) H.influenzae Type B Ag N.meningitidis ACY/W135 N.meningi B/E.coli K1 Ag Grp A Beta Strep Ag Group B Strep Antigen S. pneumoniae Antigen Assessment & Plan (1) Meningitis Status: Acute - Assessment and Plan (Free Text) Assessment: 27 y/o female with a PMHx of asthma presents to the ED for evaluation of a fever headache and rash Patient reports symptoms began with a stiff neck on and later that evening she developed a fever with a Tmax of 102. Patient states fever is associ ated with headaches, photophobia and nausea. Patient developed a rash on Monday starting on the legs and is now on the arm. Rash spares palms and soleas and is pruritic No joint involvement Patient states she went to an Urgent Care yesterday and was prescribed Cefdinir to treat the fever. recently traveled to [place] stayed at [facility] Has many nieces and nephews No ill contacts In ER LP done shows Lymphocytic predominance Started on antibiotics and Acyclovir probable viral meningitis- doubt HSV I II r/o Varicella vs RMSF doubt measles bacterial etiology unlikely cont iv rx as per Dr Pratt cont sirborne till VZV measles ruled out
--- NOTE | 2018-01-02 11:58 | RAD ---
Date of service: 01/01/2018 HISTORY: Fever. COMPARISON: January 01, 2018 study performed 16:56 TECHNIQUE: Chest PA and lateral FINDINGS: LUNGS: No active pulmonary disease. PLEURA: No significant pleural effusion identified. No pneumothorax apparent. CARDIOVASCULAR: Normal. OSSEOUS STRUCTURES: No significant abnormalities. VISUALIZED UPPER ABDOMEN: Normal. OTHER FINDINGS: None. IMPRESSION: No active disease. No significant interval change compared to the prior examination(s). Concordant results with the preliminary interpretation rendered by the emergency department physician procedure.
--- NOTE | 2018-01-02 12:01 | CARD ---
APPROVED REPORT Date of service: 01/01/2018 EKG Measurement Heart [id number] <Conclusion> Normal sinus rhythm Normal ECG
[2018-01-03] MEDS: Hydrocortisone 1% Oint TOP SCH ×2 (09:03→16:30)
--- NOTE | 2018-01-03 10:46 | CP.PCM.PN ---
Subjective - Date & Time of Evaluation Date of Evaluation: 01/03/18 Time of Evaluation: 10:46 - Subjective Subjective: C/O HEADACHES--DIFFUSE C/O LIGHT SENSITIVITY Objective - Vital Signs/Intake and Output Vital Signs (last 24 hours): Temp Pulse Resp BP Pulse Ox 100.9 F H 88 20 125/83 96 01/03/18 08:45 01/03/18 08:27 01/03/18 08:27 01/03/18 08:27 01/03/18 08:27 - Medications Medications: Current Medications Acetaminophen (Tylenol 325mg Tab) 650 mg PO Q4 PRN PRN Reason: Headache Last Admin: 01/03/18 08:45 Dose: 650 mg Acetaminophen (Tylenol 325mg Tab) 650 mg PO Q4 PRN PRN Reason: Other Albuterol Sulfate (Albuterol 0.083% Inhal Blanca (2.5 Mg/3 Ml) Ud) 2.5 mg INH RQ6 PRN PRN Reason: Shortness of Breath Hydrocortisone (Cortizone 1% Oint) 1 applic TOP BID CARLOS Last Admin: 01/03/18 09:03 Dose: 1 % Acyclovir 800 mg/ Sodium (Chloride) 250 mls @ 250 mls/hr IV Q8 CARLOS; Protocol Last Admin: 01/03/18 08:49 Dose: 250 mls/hr Doxycycline Hyclate 100 mg/ (Sodium Chloride) 100 mls @ 100 mls/hr IVPB Q12 CARLOS; Protocol Last Admin: 01/03/18 08:48 Dose: 100 mls/hr Ceftriaxone Sodium 2 gm/ (Sodium Chloride) 100 mls @ 100 mls/hr IVPB DAILY CARLOS; Protocol - Labs Labs: 01/02/18 05:35 01/02/18 05:35 PT 11.1 Seconds (9.8-13.1) 01/01/18 16:12 INR 1.0 01/01/18 16:12 APTT 30.2 Seconds (25.6-37.1) 01/01/18 16:12 - Constitutional Appears: In Acute Distress - Head Exam Head Exam: ATRAUMATIC, NORMAL INSPECTION, NORMOCEPHALIC - Eye Exam Eye Exam: EOMI, Normal appearance, PERRL Pupil Exam: NORMAL ACCOMODATION, PERRL - ENT Exam ENT Exam: Mucous Membranes Moist, Normal Exam - Neck Exam Neck Exam: Full ROM, Normal Inspection. absent: Lymphadenopathy - Respiratory Exam Respiratory Exam: Clear to Ausculation Bilateral, NORMAL BREATHING PATTERN - Cardiovascular Exam Cardiovascular Exam: REGULAR RHYTHM, +S1, +S2. absent: Murmur - GI/Abdominal Exam GI & Abdominal Exam: Soft, Normal Bowel Sounds. absent: Tenderness - Rectal Exam Rectal Exam: NORMAL INSPECTION - Extremities Exam Extremities Exam: Full ROM, Normal Capillary Refill, Normal Inspection. absent: Joint Swelling, Pedal Edema - Back Exam Back Exam: NORMAL INSPECTION - Neurological Exam Neurological Exam: Alert, Awake, CN II-XII Intact, Normal Gait, Oriented x3 - Psychiatric Exam Psychiatric exam: Normal Affect, Normal Mood - Skin Skin Exam: Dry, Intact, Normal Color, Warm Assessment and Plan - Assessment and Plan (Free Text) Assessment: PROBABLE VIRAL MENINGITIS Plan: FIORECET FOR HEADACHES IV FLUIDS AND ANTIBIOTICS
[2018-01-03] MEDS ORDERED: Dextrose 5%/0.45% NS 1,000 ML IV SCH (11:00)
[2018-01-03 12:55] LABS: SPECIMEN SOURCE CSF
--- NOTE | 2018-01-03 13:26 | CP.PCM.PN ---
Subjective - Date & Time of Evaluation Date of Evaluation: 01/03/18 Time of Evaluation: 09:00 - Subjective Subjective: rash is fading febrile last night Objective - Vital Signs/Intake and Output Vital Signs (last 24 hours): Temp Pulse Resp BP Pulse Ox 100.9 F H 88 20 125/83 96 01/03/18 08:45 01/03/18 08:27 01/03/18 08:27 01/03/18 08:27 01/03/18 08:27 - Medications Medications: Current Medications Acetaminophen (Tylenol 325mg Tab) 650 mg PO Q4 PRN PRN Reason: Headache Last Admin: 01/03/18 08:45 Dose: 650 mg Acetaminophen (Tylenol 325mg Tab) 650 mg PO Q4 PRN PRN Reason: Other Acetaminophen/Butalbital/Caffeine (Fioricet) 1 tab PO Q4 PRN PRN Reason: Headache Albuterol Sulfate (Albuterol 0.083% Inhal Blanca (2.5 Mg/3 Ml) Ud) 2.5 mg INH RQ6 PRN PRN Reason: Shortness of Breath Hydrocortisone (Cortizone 1% Oint) 1 applic TOP BID CARLOS Last Admin: 01/03/18 09:03 Dose: 1 % Acyclovir 800 mg/ Sodium (Chloride) 250 mls @ 250 mls/hr IV Q8 CARLOS; Protocol Last Admin: 01/03/18 08:49 Dose: 250 mls/hr Doxycycline Hyclate 100 mg/ (Sodium Chloride) 100 mls @ 100 mls/hr IVPB Q12 CARLOS; Protocol Last Admin: 01/03/18 08:48 Dose: 100 mls/hr Ceftriaxone Sodium 2 gm/ (Sodium Chloride) 100 mls @ 100 mls/hr IVPB DAILY CARLOS; Protocol Dextrose/Sodium Chloride (Dextrose 5%/0.45% Ns 1000 Ml) 1,000 mls @ 42 mls/hr IV .[id number] CARLOS Stop: 01/04/18 10:47 - Labs Labs: 01/02/18 05:35 01/02/18 05:35 PT 11.1 Seconds (9.8-13.1) 01/01/18 16:12 INR 1.0 01/01/18 16:12 APTT 30.2 Seconds (25.6-37.1) 01/01/18 16:12 - Constitutional Appears: Non-toxic, Chronically Ill - Head Exam Head Exam: NORMOCEPHALIC - Eye Exam Eye Exam: PERRL. absent: Scleral icterus - ENT Exam ENT Exam: Mucous Membranes Dry - Neck Exam Neck Exam: absent: Lymphadenopathy - Respiratory Exam Respiratory Exam: Decreased Breath Sounds - Cardiovascular Exam Cardiovascular Exam: REGULAR RHYTHM - GI/Abdominal Exam GI & Abdominal Exam: Distended, Soft. absent: Tenderness - Rectal Exam Rectal Exam: Deferred - Exam Exam: NORMAL INSPECTION - Extremities Exam Extremities Exam: absent: Pedal Edema - Back Exam Back Exam: absent: CVA tenderness (L), CVA tenderness (R) - Neurological Exam Neurological Exam: Alert, Awake, Oriented x3 - Psychiatric Exam Psychiatric exam: Normal Mood - Skin Skin Exam: Dry, Intact Assessment and Plan (1) Meningitis Status: Acute - Assessment and Plan (Free Text) Assessment: 27 y/o female presents to the ED for evaluation of a fever headache and rash In ER LP done shows Lymphocytic predominance Started on antibiotics and Acyclovir probable viral meningitis- doubt HSV I II r/o Varicella doubt measles bacterial etiology unlikely - except rickettsia cont iv rx as per Dr Pratt cont airborne till VZV measles ruled out
[2018-01-03] MEDS: Apap-Butalbital-Caffeine 325-50-40mg Tab PO PRN ×3 (13:47→22:12)
[2018-01-04] MEDS: Apap-Butalbital-Caffeine 325-50-40mg Tab PO PRN ×4 (05:36→18:40)
--- NOTE | 2018-01-04 08:33 | CP.PCM.PN ---
Subjective - Date & Time of Evaluation Date of Evaluation: 01/04/18 Time of Evaluation: 08:41 - Subjective Subjective: HEADACHES LESS AFEBRILE SKIN RASH RESOLVED Objective - Vital Signs/Intake and Output Vital Signs (last 24 hours): Temp Pulse Resp BP Pulse Ox 98.5 F 73 19 109/68 97 01/04/18 08:22 01/04/18 08:22 01/04/18 08:22 01/04/18 08:22 01/04/18 08:22 - Medications Medications: Current Medications Acetaminophen (Tylenol 325mg Tab) 650 mg PO Q4 PRN PRN Reason: Headache Last Admin: 01/03/18 08:45 Dose: 650 mg Acetaminophen (Tylenol 325mg Tab) 650 mg PO Q4 PRN PRN Reason: Other Acetaminophen/Butalbital/Caffeine (Fioricet) 1 tab PO Q4 PRN PRN Reason: Headache Last Admin: 01/04/18 05:36 Dose: 1 tab Albuterol Sulfate (Albuterol 0.083% Inhal Blanca (2.5 Mg/3 Ml) Ud) 2.5 mg INH RQ6 PRN PRN Reason: Shortness of Breath Hydrocortisone (Cortizone 1% Oint) 1 applic TOP BID CARLOS Last Admin: 01/03/18 16:30 Dose: 1 applic Acyclovir 800 mg/ Sodium (Chloride) 250 mls @ 250 mls/hr IV Q8 CARLOS; Protocol Last Admin: 01/04/18 00:10 Dose: 250 mls/hr Doxycycline Hyclate 100 mg/ (Sodium Chloride) 100 mls @ 100 mls/hr IVPB Q12 CARLOS; Protocol Last Admin: 01/03/18 20:31 Dose: 100 mls/hr Ceftriaxone Sodium 2 gm/ (Sodium Chloride) 100 mls @ 100 mls/hr IVPB DAILY CARLOS; Protocol Dextrose/Sodium Chloride (Dextrose 5%/0.45% Ns 1000 Ml) 1,000 mls @ 42 mls/hr IV .[id number] CARLOS Stop: 01/04/18 10:47 Last Admin: 01/03/18 13:52 Dose: Not Given - Labs Labs: 01/02/18 05:35 01/02/18 05:35 PT 11.1 Seconds (9.8-13.1) 01/01/18 16:12 INR 1.0 01/01/18 16:12 APTT 30.2 Seconds (25.6-37.1) 01/01/18 16:12 - Constitutional Appears: No Acute Distress - Head Exam Head Exam: ATRAUMATIC, NORMAL INSPECTION, NORMOCEPHALIC - Eye Exam Eye Exam: EOMI, Normal appearance, PERRL Pupil Exam: NORMAL ACCOMODATION, PERRL - ENT Exam ENT Exam: Mucous Membranes Moist, Normal Exam - Neck Exam Neck Exam: Full ROM, Normal Inspection. absent: Lymphadenopathy - Respiratory Exam Respiratory Exam: Clear to Ausculation Bilateral, NORMAL BREATHING PATTERN - Cardiovascular Exam Cardiovascular Exam: REGULAR RHYTHM, +S1, +S2. absent: Murmur - GI/Abdominal Exam GI & Abdominal Exam: Soft, Normal Bowel Sounds. absent: Tenderness - Rectal Exam Rectal Exam: NORMAL INSPECTION - Extremities Exam Extremities Exam: Full ROM, Normal Capillary Refill, Normal Inspection. absent: Joint Swelling, Pedal Edema - Back Exam Back Exam: NORMAL INSPECTION - Neurological Exam Neurological Exam: Alert, Awake, CN II-XII Intact, Normal Gait, Oriented x3 - Psychiatric Exam Psychiatric exam: Normal Affect, Normal Mood - Skin Skin Exam: Dry, Intact, Normal Color, Warm Assessment and Plan - Assessment and Plan (Free Text) Assessment: VIRAL MENINGITIS--CLINICALLY IMPROVING Plan: CONTINUE CURRENT THERAPY DISCHARGE HOME IN AM IF STABLE
[2018-01-04] MEDS: cefTRIAXone 2 GM in Sodium Chloride 0.9% 100 ML IVPB SCH (10:20)
[2018-01-04] MEDS: Hydrocortisone 1% Oint TOP SCH ×2 (10:23→17:41)
[2018-01-04 12:46] LABS: COMPLEMENT C4 27.7 mg/dL (14.0-44.0)
--- NOTE | 2018-01-04 18:54 | CP.PCM.PN ---
Subjective - Date & Time of Evaluation Date of Evaluation: 01/04/18 Time of Evaluation: 08:00 - Subjective Subjective: headache less rash improving Objective - Vital Signs/Intake and Output Vital Signs (last 24 hours): Temp Pulse Resp BP Pulse Ox 98.3 F 86 18 114/69 97 01/04/18 16:13 01/04/18 16:13 01/04/18 16:13 01/04/18 16:13 01/04/18 16:13 - Medications Medications: Current Medications Acetaminophen (Tylenol 325mg Tab) 650 mg PO Q4 PRN PRN Reason: Headache Last Admin: 01/03/18 08:45 Dose: 650 mg Acetaminophen (Tylenol 325mg Tab) 650 mg PO Q4 PRN PRN Reason: Other Acetaminophen/Butalbital/Caffeine (Fioricet) 1 tab PO Q4 PRN PRN Reason: Headache Last Admin: 01/04/18 18:40 Dose: 1 tab Albuterol Sulfate (Albuterol 0.083% Inhal Blanca (2.5 Mg/3 Ml) Ud) 2.5 mg INH RQ6 PRN PRN Reason: Shortness of Breath Hydrocortisone (Cortizone 1% Oint) 1 applic TOP BID CARLOS Last Admin: 01/04/18 17:41 Dose: 1 applic Acyclovir 800 mg/ Sodium (Chloride) 250 mls @ 250 mls/hr IV Q8 CARLOS; Protocol Last Admin: 01/04/18 17:40 Dose: 250 mls/hr Doxycycline Hyclate 100 mg/ (Sodium Chloride) 100 mls @ 100 mls/hr IVPB Q12 CARLOS; Protocol Last Admin: 01/04/18 10:17 Dose: 100 mls/hr Ceftriaxone Sodium 2 gm/ (Sodium Chloride) 100 mls @ 100 mls/hr IVPB DAILY CARLOS; Protocol Last Admin: 01/04/18 10:20 Dose: 100 mls/hr - Labs Labs: 01/02/18 05:35 01/02/18 05:35 PT 11.1 Seconds (9.8-13.1) 01/01/18 16:12 INR 1.0 01/01/18 16:12 APTT 30.2 Seconds (25.6-37.1) 01/01/18 16:12 - Constitutional Appears: Non-toxic, Chronically Ill - Head Exam Head Exam: NORMOCEPHALIC - Eye Exam Eye Exam: PERRL - ENT Exam ENT Exam: Mucous Membranes Dry - Neck Exam Neck Exam: absent: Lymphadenopathy - Respiratory Exam Respiratory Exam: Decreased Breath Sounds - Cardiovascular Exam Cardiovascular Exam: REGULAR RHYTHM - GI/Abdominal Exam GI & Abdominal Exam: Distended, Soft - Rectal Exam Rectal Exam: Deferred - Exam Exam: NORMAL INSPECTION - Extremities Exam Extremities Exam: absent: Pedal Edema - Back Exam Back Exam: absent: CVA tenderness (L) - Neurological Exam Neurological Exam: Alert, Awake, CN II-XII Intact, Oriented x3 Assessment and Plan (1) Meningitis Status: Acute - Assessment and Plan (Free Text) Assessment: 27 y/o female presents to the ED for evaluation of a fever headache and rash LP done shows Lymphocytic predominance Rickettsia panel pending VZV IG G + making primary varicella unlikely 'Measles still not resulted Patient plans on leaving- would cont Acyclovir PO 800mg 5 x dailyu for 7 days as well as Doxy for 7 days would advise patient to quarantine at home until MMR results available
[2018-01-05] MEDS: Apap-Butalbital-Caffeine 325-50-40mg Tab PO PRN ×3 (00:08→09:51)
[2018-01-05 00:41] VITALS: PULSE 76; RESP 19
--- NOTE | 2018-01-05 08:10 | CP.PCM.DIS ---
Provider - Provider Date of Admission: 01/02/18 08:14 Attending physician: Bunny Pratt MD Time Spent in preparation of Discharge (in minutes): 35 Diagnosis - Discharge Diagnosis (1) Meningitis Status: Acute Hospital Course - Lab Results Lab Results: Micro Results 01/01/18 16:00 Blood Blood Culture - Preliminary NO GROWTH AFTER 3 DAYS 01/01/18 16:00 Blood Blood Culture - Preliminary NO GROWTH AFTER 3 DAYS 01/01/18 16:12 Urine,Clean Catch Urine Culture - Final No Growth (<1,000 CFU/ML) 01/01/18 16:12 Throat Group A Strep Throat Culture - Final NO BETA STREP GROUP A ISOLATED. Most Recent Lab Values WBC 4.6 K/uL (4.8-10.8) L 01/02/18 05:35 RBC 3.76 Mil/uL (3.80-5.20) L 01/02/18 05:35 Hgb 11.6 g/dL (12.0-16.0) L 01/02/18 05:35 Hct 34.1 % (34.0-47.0) 01/02/18 05:35 MCV 90.8 fl (81.0-99.0) 01/02/18 05:35 MCH 30.8 pg (27.0-31.0) 01/02/18 05:35 MCHC 34.0 g/dL (33.0-37.0) 01/02/18 05:35 RDW 11.6 % (11.5-14.5) 01/02/18 05:35 Plt Count 286 K/uL (130-400) 01/02/18 05:35 MPV 7.0 fl (7.2-11.7) L 01/02/18 05:35 Neut % (Auto) 78.5 % (50.0-75.0) H 01/02/18 05:35 Lymph % (Auto) 12.8 % (20.0-40.0) L 01/02/18 05:35 Richardson % (Auto) 8.3 % (0.0-10.0) 01/02/18 05:35 Eos % (Auto) 0.0 % (0.0-4.0) 01/02/18 05:35 Baso % (Auto) 0.4 % (0.0-2.0) 01/02/18 05:35 Neut # (Auto) 3.6 K/uL (1.8-7.0) 01/02/18 05:35 Lymph # (Auto) 0.6 K/uL (1.0-4.3) L 01/02/18 05:35 Richardson # (Auto) 0.4 K/uL (0.0-0.8) 01/02/18 05:35 Eos # (Auto) 0.0 K/uL (0.0-0.7) 01/02/18 05:35 Baso # (Auto) 0.0 K/uL (0.0-0.2) 01/02/18 05:35 ESR 59 mm/hr (0-20) H 01/02/18 05:35 PT 11.1 Seconds (9.8-13.1) 01/01/18 16:12 INR 1.0 01/01/18 16:12 APTT 30.2 Seconds (25.6-37.1) 01/01/18 16:12 pO2 22 mm/Hg (30-55) L 01/01/18 16:06 VBG pH 7.39 (7.32-7.43) 01/01/18 16:06 VBG pCO2 46 mmHg (40-60) 01/01/18 16:06 VBG HCO3 25.0 mmol/L 01/01/18 16:06 VBG Total CO2 29.2 mmol/L (22-28) H 01/01/18 16:06 VBG O2 Sat (Calc) 37.8 % (40-65) L 01/01/18 16:06 VBG Base Excess 2.2 mmol/L (0.0-2.0) H 01/01/18 16:06 VBG Potassium 3.4 mmol/L (3.6-5.2) L 01/01/18 16:06 Sodium 137.0 mmol/L (132-148) 01/01/18 16:06 Chloride 97.0 mmol/L (98-107) L 01/01/18 16:06 Glucose 91 mg/dL (65-105) 01/01/18 16:06 Lactate 0.8 mmol/L (0.7-2.1) 01/01/18 16:06 FiO2 21.0 % 01/01/18 16:06 Sodium 139 mmol/l (132-148) 01/02/18 05:35 Potassium 4.2 MMOL/L (3.6-5.0) 01/02/18 05:35 Chloride 106 mmol/L (98-107) 01/02/18 05:35 Carbon Dioxide 25 mmol/L (22-30) 01/02/18 05:35 Anion Gap 12 (10-20) 01/02/18 05:35 BUN 7 mg/dl (7-17) 01/02/18 05:35 Creatinine 0.5 mg/dl (0.7-1.2) L 01/02/18 05:35 Est GFR ( Amer) > 60 01/02/18 05:35 Est GFR (Non-Af Amer) > 60 01/02/18 05:35 POC Glucose (mg/dL) 114 mg/dL (65-110) H 01/01/18 16:48 Random Glucose 116 mg/dL (65-105) H 01/02/18 05:35 Calcium 8.8 mg/dL (8.4-10.2) 01/02/18 05:35 Phosphorus 4.1 mg/dl (2.5-4.5) 01/01/18 16:12 Magnesium 2.1 MG/DL (1.6-2.3) 01/01/18 16:12 Total Bilirubin 0.8 mg/dl (0.2-1.3) 01/01/18 16:12 AST 27 U/L (14-36) 01/01/18 16:12 ALT 25 U/L (9-52) 01/01/18 16:12 Alkaline Phosphatase 46 U/L (38-126) 01/01/18 16:12 Total Protein 7.9 G/DL (6.3-8.2) 01/01/18 16:12 Albumin 4.0 g/dL (3.5-5.0) 01/01/18 16:12 Globulin 3.9 gm/dL (2.2-3.9) 01/01/18 16:12 Albumin/Globulin Ratio 1.0 (1.0-2.1) 01/01/18 16:12 Venous Blood Potassium 3.4 mmol/L (3.6-5.2) L 01/01/18 16:06 Urine Color Yellow (YELLOW) 01/01/18 16:12 Urine Clarity Clear (Clear) 01/01/18 16:12 Urine pH 6.0 (5.0-8.0) 01/01/18 16:12 Ur Specific [place] 1.008 (1.003-1.030) 01/01/18 16:12 Urine Protein Negative mg/dL (NEGATIVE) 01/01/18 16:12 Urine Glucose (UA) Neg mg/dL (Normal) 01/01/18 16:12 Urine Ketones Negative mg/dL (NEGATIVE) 01/01/18 16:12 Urine Blood Moderate (NEGATIVE) 01/01/18 16:12 Urine Nitrate Negative (NEGATIVE) 01/01/18 16:12 Urine Bilirubin Negative (NEGATIVE) 01/01/18 16:12 Urine Urobilinogen 0.2-1.0 mg/dL (0.2-1.0) 01/01/18 16:12 Ur Leukocyte Esterase Neg Ashwini/uL (Negative) 01/01/18 16:12 Urine RBC (Auto) 8 /hpf (0-3) H 01/01/18 16:12 Urine Microscopic WBC 1 /hpf (0-5) 01/01/18 16:12 Ur Squamous Epith Cells < 1 /hpf (0-5) 01/01/18 16:12 Urine Bacteria Rare (<OCC) 01/01/18 16:12 Fluid Type Spinal fluid 01/01/18 17:03 CSF Volume 1 mL (0-1) 01/01/18 17:03 CSF Appearance Clear/colorless (CLEAR) 01/01/18 17:03 CSF WBC 67.0 /mm3 (0.0-5.0) H 01/01/18 17:03 CSF RBC 1.0 /mm3 (0.0-0.0) H 01/01/18 17:03 CSF Total Cell Counted 100 (0-0) H 01/01/18 17:03 CSF Neutrophils 13 % (0-0) H 01/01/18 17:03 CSF Lymphocytes 74.0 % (0-0) H 01/01/18 17:03 CSF Monos/Macrophages 13 % (0-0) H 01/01/18 17:03 CSF Comment Colorless 01/01/18 17:03 CSF Glucose 53 mg/dL (40-70) 01/01/18 15:49 CSF Total Protein 47.0 mg/dL (12-60) 01/01/18 15:49 Complement C3 104.0 mg/dL (88.0-165.0) 01/04/18 05:30 Complement C4 27.7 mg/dL (14.0-44.0) 01/04/18 05:30 RPR Nonreactive (NONREACTIVE) 01/02/18 11:42 HSV Source Description Csf 01/01/18 17:00 HSV I DNA PCR Not detected (Not Detected) 01/01/18 17:00 HSV II DNA PCR Not detected (Not Detected) 01/01/18 17:00 HIV 1&2 Antibody Screen Negative (NEGATIVE) 01/02/18 11:42 Infectious Richardson Assay Negative (NEGATIVE) 01/01/18 16:12 Influenza Typ A,B (EIA) Negative for flu a/b (NEGATIVE) 01/01/18 16:12 H.influenzae Type B Ag Negative (NEGATIVE) 01/01/18 17:00 N.meningitidis ACY/W135 Negative (NEGATIVE) 01/01/18 17:00 N.meningi B/E.coli K1 Ag Negative (NEGATIVE) 01/01/18 17:00 Grp A Beta Strep Ag Negative (NEGATIVE) 01/01/18 16:12 Group B Strep Antigen Negative (NEGATIVE) 01/01/18 17:00 S. pneumoniae Antigen Negative (NEGATIVE) 01/01/18 17:00 VZV IgG Antibody Positive (POSITIVE) 01/02/18 11:42 VZV IgM Antibody <=0.90 (<=0.90) 01/02/18 11:42 - Hospital Course Hospital Course: HEADACHES AND SKIN RASH WITH FEVER--RESOLVED Discharge Exam - Head Exam Head Exam: NORMOCEPHALIC - Eye Exam Eye Exam: EOMI, Normal appearance, PERRL Pupil Exam: NORMAL ACCOMODATION, PERRL - GI/Abdominal Exam GI & Abdominal Exam: Normal Bowel Sounds - Rectal Exam Rectal Exam: NORMAL INSPECTION - Neurological Exam Neurological exam: Alert, CN II-XII Intact, Normal Gait, Oriented x3, Reflexes Normal - Psychiatric Exam Psychiatric exam: Normal Affect, Normal Mood - Skin Skin Exam: Dry, Intact, Normal Color, Warm Discharge Plan - Follow Up Plan Condition: SERIOUS Disposition: HOME/ ROUTINE Patient education suggested?: Yes Additional Instructions: CONTINUE ACYCLOVIR AND DOXYCYCLINE X 7 MORE DAYS FIORECET FOR HEADACHES
[2018-01-05 08:13] VITALS: BP 118/73; TEMP 97.7; O2SAT 97
[2018-01-05] MEDS: Hydrocortisone 1% Oint TOP SCH (09:08)
[2018-01-05] MEDS: cefTRIAXone 2 GM in Sodium Chloride 0.9% 100 ML IVPB SCH (09:09)
--- NOTE | 2018-01-07 11:55 | PQF ---
PROVIDER RESPONSE TEXT: VIRAL MENINGITIS REVIEWER QUERY TEXT: Documentation Clarification Your help is requested in clarifying the following clinical documentation, if you can please further specify in the medical record and discharge summary. Discharge Summary documented meningitis. Please clarify if diagnosis of meningitis can be further spe cified. The patient's Clinical Indicators include: ED Physician Documentation Report "CSF c/w viral meningitis." Query created by: Marivel Lopez on 01/07/2018 7:15 AM Electronically signed by: Bunny Pratt MD 01/07/2018 11:51 AM
== END 2018-01-05 10:58 | disposition home or self-care (01) | DRG 76 ==
LOC: H.ER 14:37 → H.ERHOLD 17:32 → H.MEDSURG1 20:57 → OBSVTOIN 01-02 08:14
PROVIDERS: ADMIT Internal Medicine Pulmonary Disease; ATTEND Internal Medicine Pulmonary Disease
PROC: 009U3ZX Drainage of Spinal Canal, Percutaneous Approach, Diagnostic (ICD-10-PCS; principal; 2018-01-02)
DX: A87.9 Viral meningitis, unspecified (principal); J45.20 Mild intermittent asthma, uncomplicated; L29.9 Pruritus, unspecified; Z91.013 Allergy to seafood